=== PATIENT | male | born 1975 | race Caucasian/White ===

== ENCOUNTER 2024-06-10 11:37 | Emergency (ER) | payer BC ==
[~2024-06-10] VITALS: Ht 200.6 cm; Wt 127.0 kg
[2024-06-10] MEDS ORDERED: MELOXICAM15 MG PO (14:30)
[2024-06-10] MEDS ORDERED: Acetaminophen/Oxycodone 5 MG/325 MG TABLET PO ONE (14:30)
== END 2024-06-10 14:36 | disposition home or self-care (01) ==
LOC: ED 11:37
DX: S20.211A Contusion of right front wall of thorax, initial encounter (principal); Z98.890 Other specified postprocedural states; W19.XXXA Unspecified fall, initial encounter; Y93.89 Activity, other specified; Y92.89 Other specified places as the place of occurrence of the external cause; Y99.8 Other external cause status